=== PATIENT | male | born 1940 | race Caucasian/White ===

== ENCOUNTER 2017-04-26 10:56 | Emergency (ER) | payer OTHER ==
[~2017-04-26] VITALS: Ht 170.2 cm; Wt 99.8 kg
[2017-04-26] MEDS ORDERED: SODIUM CHLORIDE 0.9% 1,000 ML IV ONE (11:01)
[2017-04-26] MEDS ORDERED: cloNIDine HCL 0.1 MG TAB PO ONE ×2 (11:15→14:15)
[2017-04-26 11:58] LABS: Urine RBC None Seen /hpf (0 - 3)
[2017-04-26 12:10] LABS: Basophils # (auto) 0 uL; Basophils % (auto) 0.7 % (0.0-2.0); Eosinophils # (auto) 0.1 uL; Eosinophils % (auto) 1.7 % (0.0-7.0); Hematocrit 45.4 % (41.0-53.0); Hemoglobin 15.9 g/dL (13.5-17.5); Lymphocytes # (auto) 1.7 uL; Lymphocytes % (auto) 25.1 % (10.0-50.0); Mean Corpuscular Hemoglobin 32.3 pg (28.0-32.0); Mean Corpuscular Hgb Conc. 34.9 g/dL (32.0-36.0); Mean Corpuscular Volume 92.4 fL (80.0-100.0); Mean Platelet Volume 7.9 fL (6.9-10.8); Monocytes # (auto) 0.4 uL; Monocytes % (auto) 6.3 % (0.0-12.0); Neutrophils # (auto) 4.4 uL; Neutrophils % (auto) 66.2 % (37.0-80.0); Platelet Count (auto) 199 10^3/uL (140-450); Red Cell Distribution Width 13.4 % (11.8-14.3); White Blood Cell 6.7 10^3/uL (4.4-10.8)
[2017-04-26 12:37] LABS: Urine Bilirubin Negative (Negative); Urine Blood Negative /uL (Negative); Urine Color Yellow (Yellow); Urine Glucose Normal (Normal); Urine Ketone 1+ (Negative); Urine Mucus FEW (None Seen); Urine Nitrite Negative (Negative); Urine Squamous Epithelial Cell FEW /hpf (<5); Urine Urobilinogen Normal (Negative); Urine pH 6.5 (5.0-8.0)
[2017-04-26 12:49] LABS: Albumin 3.7 g/dL (3.4-5.0); Alkaline Phosphatase 64 U/L (45-117); Anion Gap 11 (5-15); Aspartate Aminotransferase 24 U/L (15-37); BUN/Creatinine Ratio 13.6; Bilirubin, Total 0.5 mg/dL (0.2-1.0); Blood Urea Nitrogen 16 mg/dL (7-18); Carbon Dioxide 24 mmol/L (21-32); Chloride 106 mmol/L (98-107); GFR African American 78 mL/min; GFR Non-African American 64 mL/min; Glucose 165 mg/dL (74-106); Sodium 141 mmol/L (136-145); Total Protein 7.4 g/dL (6.4-8.2)
[2017-04-26 12:56] LABS: Potassium 2.9 mmol/L (3.5-5.1)
[2017-04-26] MEDS ORDERED: POTASSIUM CHL 20 Meq TABLET PO ONE (13:45)
[2017-04-26 15:40] VITALS: BP 142/98
[2017-04-26] MEDS ORDERED: LABETALOL HCL 5 MG/ML ML 20ML VIAL IV ONE (15:45)
== END 2017-04-26 17:47 | disposition home or self-care (01) ==
LOC: ER 10:56
DX: I10 Essential (primary) hypertension (principal); E87.6 Hypokalemia; F41.9 Anxiety disorder, unspecified
CPT/HCPCS: 36415; 71020; 80053; 81001; 84484; 85025; 93005; 96361; 96374; 99285; J7030

== ENCOUNTER 2017-06-08 19:58 | Emergency (ER) | payer OTHER ==
[~2017-06-08] VITALS: Ht 167.6 cm; Wt 81.6 kg
[2017-06-08 22:00] VITALS: BP 140/102
[2017-06-08 23:44] LABS: Urine Bacteria NONE SEEN /hpf (None Seen); Urine Blood Negative /uL (Negative); Urine Mucus FEW (None Seen); Urine Specific Gravity 1.026 (1.001-1.035); Urine WBC 2 /hpf (0 - 3)
== END 2017-06-08 22:43 | disposition home or self-care (01) ==
LOC: EDBD 19:58 → ER 19:58
DX: N39.0 Urinary tract infection, site not specified (principal)
CPT/HCPCS: 81001

== ENCOUNTER 2017-06-13 16:46 | Inpatient (IN) | payer OTHER ==
[~2017-06-13] VITALS: Ht 170.2 cm; Wt 92.0 kg
[2017-06-13 18:17] LABS: Basophils # (auto) 0.1 uL; Basophils % (auto) 0.6 % (0.0-2.0); Eosinophils # (auto) 0.2 uL; Eosinophils % (auto) 1.9 % (0.0-7.0); Hematocrit 43.8 % (41.0-53.0); Lymphocytes # (auto) 1.6 uL; Lymphocytes % (auto) 16.6 % (10.0-50.0); Mean Corpuscular Hemoglobin 32.3 pg (28.0-32.0); Mean Corpuscular Hgb Conc. 34.1 g/dL (32.0-36.0); Mean Corpuscular Volume 94.7 fL (80.0-100.0); Monocytes # (auto) 0.6 uL; Monocytes % (auto) 6.6 % (0.0-12.0); Neutrophils % (auto) 74.3 % (37.0-80.0); Platelet Count (auto) 243 10^3/uL (140-450); Red Blood Cells 4.63 10^6/uL (4.5-5.90); Red Cell Distribution Width 13.8 % (11.8-14.3); White Blood Cell 9.4 10^3/uL (4.4-10.8)
[2017-06-13 18:25] LABS: Alanine Aminotransferase 26 U/L (16-61); Albumin 3.5 g/dL (3.4-5.0); Anion Gap 7 (5-15); Aspartate Aminotransferase 16 U/L (15-37); BUN/Creatinine Ratio 23.5; Blood Urea Nitrogen 23 mg/dL (7-18); Calcium 9.3 mg/dL (8.5-10.1); Carbon Dioxide 26 mmol/L (21-32); Chloride 103 mmol/L (98-107); GFR African American 96 mL/min; GFR Non-African American 79 mL/min; Glucose 112 mg/dL (74-106); Potassium 3.7 mmol/L (3.5-5.1); Sodium 136 mmol/L (136-145)
[2017-06-13 18:30] LABS: Alkaline Phosphatase 66 U/L (45-117); Bilirubin, Total 0.4 mg/dL (0.2-1.0); Total Protein 7.5 g/dL (6.4-8.2)
[2017-06-14] MEDS ORDERED: SODIUM CHLORIDE 0.9% 1,000 ML IV ONE (00:14)
[2017-06-14 01:04] LABS: INR 1.02 (0.9-1.15); Partial Thromboplastin Time 26.1 sec (22.64-33.71); Prothrombin Time 11.1 sec (9.37-12.3)
[2017-06-14 01:46] LABS: Urine WBC None Seen /hpf (0 - 3)
[2017-06-14 01:54] LABS: Urine Bacteria NONE SEEN /hpf (None Seen); Urine Blood Negative /uL (Negative); Urine Mucus FEW (None Seen); Urine Specific Gravity 1.021 (1.001-1.035)
[2017-06-14 02:08] LABS: Alcohol, Urine < 3.0 mg/dL (0-5); Amphetamine Screen, Urine NEGATIVE (NEGATIVE); Barbiturate Scree,Urine NEGATIVE (NEGATIVE); Benzodiazephine Screen, Urine NEGATIVE (NEGATIVE); Cannabinoid Screen, Urine NEGATIVE (NEGATIVE); Cocaine Screen, Urine NEGATIVE (NEGATIVE); Opiate Scree,Urine NEGATIVE (NEGATIVE); Phencyclidine Screen, Urine NEGATIVE (NEGATIVE)
[2017-06-14] MEDS ORDERED: ONDANSETRON HCL 4 MG/2 ML VIAL IV PRN (05:15)
[2017-06-14] MEDS ORDERED: HYDROcodone-ACET 5/325MG TAB PO PRN (05:15)
[2017-06-14] MEDS ORDERED: ACETAMINOPHEN 325 MG TAB PO PRN (05:15)
[2017-06-14] MEDS: ENOXAPARIN SOD 40 MG/0.4 ML SYRINGE SC SCH (10:30)
[2017-06-14] MEDS: FAMOTIDINE 20 MG TAB PO SCH ×2 (10:30→21:37)
[2017-06-14] MEDS: LISINOPRIL 10 MG TAB PO SCH (10:30)
[2017-06-14] MEDS: FLUoxetine HCL 20 MG CAP PO SCH (10:30)
[2017-06-14 16:54] VITALS: BP 155/93
[2017-06-14 17:46] VITALS: BP 145/92
[2017-06-14] MEDS ORDERED: SIMV-8 PO (18:18)
[2017-06-14] MEDS ORDERED: TRAZ50TA2 PO (18:18)
[2017-06-14] MEDS: TAMSULOSIN HYDROCHLORIDE 0.4 MG CAP PO SCH (18:33)
[2017-06-14] MEDS: traZODone HCL 50 MG TAB PO SCH (21:37)
[2017-06-14] MEDS: TEMAZEPAM 15 MG CAP PO PRN (21:37)
[2017-06-14] MEDS: ATORVASTATIN 20 MG TAB PO SCH (21:37)
[2017-06-14 22:00] VITALS: BP 167/98
[2017-06-15 05:12] VITALS: BP 158/93
[2017-06-15 08:11] VITALS: BP 144/82
[2017-06-15 09:00] VITALS: BP 144/82
[2017-06-15] MEDS: FLUoxetine HCL 20 MG CAP PO SCH (09:01)
[2017-06-15] MEDS: FAMOTIDINE 20 MG TAB PO SCH ×2 (09:02→21:31)
[2017-06-15] MEDS: ENOXAPARIN SOD 40 MG/0.4 ML SYRINGE SC SCH (09:02)
[2017-06-15] MEDS: LISINOPRIL 10 MG TAB PO SCH (09:02)
[2017-06-15 12:25] VITALS: BP 97/61
[2017-06-15 17:00] VITALS: BP 102/75
[2017-06-15] MEDS: TAMSULOSIN HYDROCHLORIDE 0.4 MG CAP PO SCH (17:44)
[2017-06-15] MEDS: traZODone HCL 50 MG TAB PO SCH (21:31)
[2017-06-15] MEDS: ATORVASTATIN 20 MG TAB PO SCH (21:31)
[2017-06-15] MEDS: TEMAZEPAM 15 MG CAP PO PRN (21:31)
[2017-06-15 22:00] VITALS: BP 124/71
[2017-06-16 05:00] VITALS: BP 121/64
[2017-06-16 09:00] VITALS: BP 128/73
[2017-06-16] MEDS: FLUoxetine HCL 20 MG CAP PO SCH (09:52)
[2017-06-16] MEDS: FAMOTIDINE 20 MG TAB PO SCH ×2 (09:52→21:25)
[2017-06-16] MEDS: ENOXAPARIN SOD 40 MG/0.4 ML SYRINGE SC SCH (09:52)
[2017-06-16] MEDS: LISINOPRIL 10 MG TAB PO SCH (09:53)
[2017-06-16 13:00] VITALS: BP 113/70
[2017-06-16 17:00] VITALS: BP 102/60
[2017-06-16] MEDS: TAMSULOSIN HYDROCHLORIDE 0.4 MG CAP PO SCH (17:34)
[2017-06-16] MEDS: ATORVASTATIN 20 MG TAB PO SCH (21:25)
[2017-06-16] MEDS: traZODone HCL 50 MG TAB PO SCH (21:26)
[2017-06-16] MEDS: TEMAZEPAM 15 MG CAP PO PRN (21:26)
[2017-06-16 22:53] VITALS: BP 116/72
[2017-06-17 05:47] VITALS: BP 148/86
[2017-06-17 09:00] VITALS: BP 140/94
[2017-06-17] MEDS: ENOXAPARIN SOD 40 MG/0.4 ML SYRINGE SC SCH (10:35)
[2017-06-17] MEDS: FAMOTIDINE 20 MG TAB PO SCH ×2 (10:35→21:42)
[2017-06-17] MEDS: FLUoxetine HCL 20 MG CAP PO SCH (10:35)
[2017-06-17] MEDS: LISINOPRIL 10 MG TAB PO SCH (10:36)
[2017-06-17 13:00] VITALS: BP 138/88
[2017-06-17 17:00] VITALS: BP 129/67
[2017-06-17] MEDS: TAMSULOSIN HYDROCHLORIDE 0.4 MG CAP PO SCH (18:49)
[2017-06-17 21:30] VITALS: BP 118/73
[2017-06-17] MEDS: ATORVASTATIN 20 MG TAB PO SCH (21:42)
[2017-06-17] MEDS: TEMAZEPAM 15 MG CAP PO PRN (21:42)
[2017-06-17] MEDS: traZODone HCL 50 MG TAB PO SCH (21:42)
[2017-06-18 05:00] VITALS: BP 128/68
[2017-06-18 09:00] VITALS: BP 149/96
[2017-06-18] MEDS: FAMOTIDINE 20 MG TAB PO SCH (11:21)
[2017-06-18] MEDS: FLUoxetine HCL 20 MG CAP PO SCH (11:21)
[2017-06-18] MEDS: ENOXAPARIN SOD 40 MG/0.4 ML SYRINGE SC SCH (11:22)
[2017-06-18] MEDS: LISINOPRIL 10 MG TAB PO SCH (11:22)
[2017-06-18 13:00] VITALS: BP 130/75
[2017-06-18 17:00] VITALS: BP 141/71
[2017-06-18] MEDS: TAMSULOSIN HYDROCHLORIDE 0.4 MG CAP PO SCH (18:17)
== END 2017-06-18 20:30 | DRG 641 ==
LOC: ER 16:46 → EDBD 16:46 → OVERFLOW 16:47 → CENTRAL 06-14 14:29
PROVIDERS: ADMIT Nurse Practitioner; ATTEND Family Medicine
DX: R62.7 Adult failure to thrive (principal); E86.0 Dehydration; F03.90 Unspecified dementia, unspecified severity, without behavioral disturbance, psychotic disturbance, mood disturbance, and anxiety; I10 Essential (primary) hypertension; E78.5 Hyperlipidemia, unspecified; F41.9 Anxiety disorder, unspecified; F32.9 Major depressive disorder, single episode, unspecified; Z75.1 Person awaiting admission to adequate facility elsewhere
CPT/HCPCS: 36415; 71045; 80053; 80307; 81001; 83880; 84443; 84484; 85025; 85379; 85610; 85730; 93005; 96360; 96372

== ENCOUNTER 2017-07-23 05:33 | Emergency (ER) | payer OTHER ==
[~2017-07-23] VITALS: Ht 170.2 cm; Wt 88.9 kg
[~2017-07-23 05:33] MED LIST: SIMV-8 PO; TRAZ50TA2 PO
[2017-07-23 07:26] LABS: Urine Bacteria MOD /hpf (None Seen); Urine Blood 2+ /uL (Negative); Urine Specific Gravity 1.019 (1.001-1.035); Urine WBC 3405 /hpf (0 - 3)
[2017-07-23] MEDS ORDERED: cefTRIAXone 1GM/10ml IVPUSH 10 ML IV ONE (08:00)
[2017-07-23 09:00] VITALS: BP 122/86
== END 2017-07-23 09:15 | disposition home or self-care (01) ==
LOC: EDBD 05:33 → ER 05:39
DX: N39.0 Urinary tract infection, site not specified (principal); N40.0 Benign prostatic hyperplasia without lower urinary tract symptoms
CPT/HCPCS: 51702; 74176; 81001; 96374